=== PATIENT | male | born 1965 | race Caucasian/White ===

== ENCOUNTER 2019-09-26 11:30 | Emergency (ER) | payer OTHER, SELFPAY ==
--- NOTE | ~2019-09-26 | XR_ITS ---
EXAMINATION: XR chest 2V DATE: 09/26/2019 12:01 INDICATION: Shortness of breath TECHNIQUE: PA and lateral views of the chest are obtained. COMPARISON: 10/15/2007 FINDINGS: The lungs are free of acute opacities. There is no pleural effusion or pneumothorax. The ca rdiomediastinal silhouette is normal. There is mild thoracic spondylosis. IMPRESSION: 1. No acute cardiopulmonary abnormality. Reviewed, dictated and finalized at location A. DIRECTOR
[2019-09-26 11:35] VITALS: BP 138/95; PULSE 140; RESP 26; TEMP 38.6; O2SAT 92
--- NOTE | 2019-09-26 11:50 | PC.NURSE ---
upset about answer question about history, explain computer went to new system, refusing to answer anymore questions, taken to rm with ,
--- NOTE | 2019-09-26 11:52 | ED.URI ---
HPI - URI/Sore Throat General Chief Complaint: Upper Respiratory Infection Stated Complaint: COUGH/SOB/CHILLS/BODY ACHES/FEVER Time Seen by Provider: 09/26/19 11:32 Source: patient Mode of arrival: ambulatory Limitations: no limitations History of Present Illness HPI Narrative: 54-year-old male presents to urgent with complaints of nasal congestion, sore throat and dry cough for the past 4 days. Patient reports that 2 days ago his symptoms worsened and he started with fevers up to 101, shortness of breath and wheezing. Patient has history of COPD. Patient reports that he does use oxygen 2 L at home as needed. Patient reports that his son was recently ill with similar cold-like symptoms. Patient is a non-smoker. Patient denies recent travel. Patient has been taking jzxt-qim-givubys Tylenol and NyQuil with no relief. Patient does have a history of a bleeding disorder and takes Coumadin daily. MD elicited complaint: fever, cough, rhinorrhea and nasal congestion Pertinent past history: COPD Onset (ago): day(s) (5) Consistency: constant Description of mucous: green Able to tolerate fluids by mouth: Yes Exacerbating factors: exertion and speaking Relieving factors: nothing Context: sick contacts (son) Treatments prior to arrival: acetaminophen and cold medicine Related Data Home Medications Medication Instructions Recorded Confirmed Albuterol Inhaler 09/26/19 acetaminophen [Tylenol] 09/26/19 alpha-1 proteinase inhib.(hum) mg IV 09/26/19 09/26/19 [Zemaira] [id number] [Vicks ml PO 09/26/19 Nyquil Nighttime Relief] montelukast [Singulair] 10 mg PO HS 09/26/19 09/26/19 warfarin 4 mg PO DAILY 09/26/19 09/26/19 Allergies Allergy/AdvReac Type Severity Reaction Status Date / Time No Known Allergies Allergy Verified 09/26/19 11:53 Review of Systems Constitutional: Constitutional: Reports chills, Denies fatigue and Reports fever(s) ENT: Denies dysphagia, Denies vertigo, Denies dizziness, Denies epistaxis, Reports nasal congestion and Denies sore throat Cardiovascular: Cardiovascular: Denies chest pain and Denies radiating jaw, neck or arm pain Respiratory: Respiratory: Reports chest congestion, Reports cough, Reports dyspnea and Reports wheezing Gastrointestinal: Gastrointestinal: Denies abdominal pain, Denies diarrhea, Denies nausea and Denies vomiting Neurologic: Denies vertigo, Denies dizziness, Denies syncope and Denies focal weakness PMF Past Medical History Medical History Bleeding disorder COPD (chronic obstructive pulmonary disease) Family History Family History Mother Family history of infectious disease Family history of Alzheimer's disease Grandparent Family history of emphysema Social History Social History Smoking status: Never smoker Second hand tobacco smoke exposure: No Smoking end date: 08/02/91 Alcohol intake: never Exam Const: General: alert Nutritional Appearance: well nourished Orientation/consciousness: patient oriented x3 HENMT: Head: normal to inspection Ears: external ears normal and TM's normal bilaterally General nose exam: Nasal discharge present Face and sinus: sinus tenderness Mouth: Yes Normal oral and palatal mucosa present and Yes moist mucous membranes Neck: Neck: normal visual inspection and no lymphadenopathy Chest: Chest palpation & inspection: normal inspection of the chest Resp: Effort & Inspection: labored Auscultation: wheezes scattered wheezes and diminished lung sounds diffuse Cardio: Rate: tachycardic Rhythm: regular rhythm Heart sounds: no murmurs Skin: General skin exam: normal color, no jaundice and no pallor Rashes: no rashes Neuro: General: patient oriented x3, moves all extremities and no meningeal signs Psych: Appearance: grossly normal and w
--- NOTE | 2019-09-26 11:58 | ED.URI ---
HPI - URI/Sore Throat General Chief Complaint: Upper Respiratory Infection Stated Complaint: COUGH/SOB/CHILLS/BODY ACHES/FEVER Time Seen by Provider: 09/26/19 11:32 Source: patient Mode of arrival: ambulatory Limitations: no limitations History of Present Illness HPI Narrative: 54-year-old male presents to urgent care with complaints of nasal congestion, runny nose, body aches and chills for the past 5 days. Patient reports that 2 days ago symptoms became worse and he started with fevers, shortness of breath and wheezing. Patient has been taking sqfn-edo-rqibvhn Tylenol and NyQuil with minimal relief. Patient reports that he does have a history of COPD and has been doing his albuterol nebulizers with minimal relief. Patient does have a history of bleeding disorders and takes Coumadin daily. Patient reports that her son was sick with similar symptoms the past 2 days. Patient is non-smoker. Patient denies recent travel. Patient does report that he has oxygen at home that he uses on an as-needed basis MD elicited complaint: fever, cough, rhinorrhea and nasal congestion Pertinent past history: COPD Onset (ago): day(s) (5) Consistency: constant Exacerbating factors: exertion and speaking Relieving factors: nothing Context: sick contacts (son) Treatments prior to arrival: acetaminophen and cold medicine Related Data Home Medications Medication Instructions Recorded Confirmed Albuterol Inhaler 09/26/19 acetaminophen [Tylenol] 09/26/19 alpha-1 proteinase inhib.(hum) mg IV 09/26/19 09/26/19 [Zemaira] [id number] [Vicks ml PO 09/26/19 Nyquil Nighttime Relief] montelukast [Singulair] 10 mg PO HS 09/26/19 09/26/19 warfarin 4 mg PO DAILY 09/26/19 09/26/19 Allergies Allergy/AdvReac Type Severity Reaction Status Date / Time No Known Allergies Allergy Verified 09/26/19 11:53 [facility] Past Medical History Medical History Bleeding disorder COPD (chronic obstructive pulmonary disease) Family History Family History Mother Family history of infectious disease Family history of Alzheimer's disease Grandparent Family history of emphysema Social History Social History Smoking status: Never smoker Second hand tobacco smoke exposure: No Smoking end date: 08/02/91 Alcohol intake: never Course Vital Signs Vital signs: Vital Signs Temperature 38.6 C H 09/26/19 11:35 Pulse Rate 140 H 09/26/19 11:35 Respiratory Rate 26 H 09/26/19 11:35 Blood Pressure 138/95 H 09/26/19 11:35 Pulse Oximetry 92 09/26/19 11:35 Temperature 38.6 C H 09/26/19 11:35 Pulse Rate 140 H 09/26/19 11:35 Respiratory Rate 26 H 09/26/19 11:35 Blood Pressure 138/95 H 09/26/19 11:35 Pulse Oximetry 92 09/26/19 11:35 Discharge Plan Discharge Prescriptions: No Action warfarin 4 mg Tablet 4 mg PO DAILY RF: 0 Zemaira 1,000 mg Recon Soln IV RF: 0 Albuterol Inhaler RF: 0 acetaminophen [Tylenol] 325 mg Tablet RF: 0 montelukast [Singulair] 10 mg Tablet 10 mg PO HS RF: 0 Vicks Nyquil Nighttime Relief 6.25-15-325 mg/15 mL Liquid PO RF: 0
[2019-09-26] MEDS: ALBUTEROL SULFATE NEB 2.5 MG/3 ML INH INHALATION (12:01)
[2019-09-26] MEDS: IPRATROPIUM BR 0.02% INH SOLN 0.5 MG/2.5 ML VIAL INHALATION (12:01)
--- NOTE | 2019-09-26 12:29 | ED.URI ---
HPI - URI/Sore Throat General Chief Complaint: Upper Respiratory Infection Stated Complaint: COUGH/SOB/CHILLS/BODY ACHES/FEVER Time Seen by Provider: 09/26/19 11:32 Source: patient Mode of arrival: ambulatory Limitations: no limitations History of Present Illness HPI Narrative: 54-year-old male presents to urgent care Exacerbating factors: exertion and speaking Relieving factors: nothing Context: sick contacts (son) Treatments prior to arrival: acetaminophen and cold medicine Related Data Home Medications Medication Instructions Recorded Confirmed Albuterol Inhaler 09/26/19 acetaminophen [Tylenol] 09/26/19 alpha-1 proteinase inhib.(hum) mg IV 09/26/19 09/26/19 [Zemaira] [id number] [Vicks ml PO 09/26/19 Nyquil Nighttime Relief] montelukast [Singulair] 10 mg PO HS 09/26/19 09/26/19 warfarin 4 mg PO DAILY 09/26/19 09/26/19 Allergies Allergy/AdvReac Type Severity Reaction Status Date / Time No Known Allergies Allergy Verified 09/26/19 11:53 [facility] Past Medical History Medical History Bleeding disorder COPD (chronic obstructive pulmonary disease) Family History Family History Mother Family history of infectious disease Family history of Alzheimer's disease Grandparent Family history of emphysema Social History Social History Smoking status: Never smoker Second hand tobacco smoke exposure: No Smoking end date: 08/02/91 Alcohol intake: never Course Vital Signs Vital signs: Vital Signs Temperature 38.6 C H 09/26/19 11:35 Pulse Rate 140 H 09/26/19 11:35 Respiratory Rate 26 H 09/26/19 11:35 Blood Pressure 138/95 H 09/26/19 11:35 Pulse Oximetry 92 09/26/19 11:35 Temperature 38.6 C H 09/26/19 11:35 Pulse Rate 140 H 09/26/19 11:35 Respiratory Rate 26 H 09/26/19 11:35 Blood Pressure 138/95 H 09/26/19 11:35 Pulse Oximetry 92 09/26/19 11:35 MDM - URI/Sore Throat Lab Data Labs: Influenza A Screen Negative Reference Range: Negative Influenza B Screen Negative Reference Range: Negative Discharge Plan Discharge Prescriptions: No Action warfarin 4 mg Tablet 4 mg PO DAILY RF: 0 Zemaira 1,000 mg Recon Soln IV RF: 0 Albuterol Inhaler RF: 0 acetaminophen [Tylenol] 325 mg Tablet RF: 0 montelukast [Singulair] 10 mg Tablet 10 mg PO HS RF: 0 Vicks Nyquil Nighttime Relief 6.25-15-325 mg/15 mL Liquid PO RF: 0
--- NOTE | 2019-09-26 12:44 | PC.NURSE ---
Pt coughing everywhere and refusing mask--un-cooperative about history
[2019-09-26 12:49] VITALS: PULSE 139; RESP 22; O2SAT 92
--- NOTE | 2019-09-26 12:49 | PC.NURSE ---
Tylenol 1 Gm given at 1159
--- NOTE | 2019-09-26 12:51 | PC.NURSE ---
Pt advised needs lab work--refuses ambulance but will have take him to [facility] via car--staff there informed. Pt still rude to staff and refusing mask but coughing all over
== END 2019-09-26 12:45 | disposition short-term general hospital (02) ==
PROVIDERS: Emergency Provider Nurse Practitioner Family; PCP Family Medicine
DX: R06.00 Dyspnea, unspecified (principal); J44.1 Chronic obstructive pulmonary disease with (acute) exacerbation
CPT/HCPCS: 71046; 87804; 94640; 99213; G0463

== ENCOUNTER 2019-09-26 13:24 | Emergency (ER) | payer OTHER, SELFPAY ==
[2019-09-26] VITALS (9 sets, daily range): BP systolic 109–159; BP diastolic 80–95; PULSE 106–136; RESP 11–27; TEMP 37.2–38.4; O2SAT 92–98
--- NOTE | ~2019-09-26 | CT_ITS ---
EXAMINATION: CT abdomen pelvis w con DATE: 09/26/2019 15:51 INDICATION: Left lower quadrant abdominal pain TECHNIQUE: Computed tomography (CT) of the abdomen and pelvis was performed with 100 mL Omnipaque-350 intravenous contrast. Automated exposure control and iterative reconstruction technique were employe d. The dose-length product was 1238.96 mGy-cm. COMPARISON: None FINDINGS: Moderate emphysema at the lung bases. There is diffuse bronchial wall thickening along with scattered mucous plugging in the bilateral lower lobes. Minimal tree-in-bud opacity associated with some of th e frontal mucous impacted bronchi. Minimal atelectasis at the posterior medial basilar aspect of both lower lobes. Heart size is normal. No pericardial or pleural effusion. Diffuse hepatic steatosis wit h more focal fat at the ligamentum teres. Multiple tiny calcified gallstones in the normal gallbladde r. Spleen, pancreas, bilateral adrenal glands and kidneys are normal. There are few diverticula along the sigmoid colon without adjacent inflammatory change to suggest diverticulitis. Small bowel and ap pendix are normal. Bladder is normal. Small fat-containing left inguinal hernia. Small right paraumbi lical hernia arising from the margin of a small widemouth umbilical hernia. There is mild inflammator y stranding associated with the herniated fat. No free intraperitoneal gas or fluid. No pathologicall y enlarged abdominal or pelvic lymphadenopathy. Transitional thoracolumbar segment with right-sided h ypoplastic riblet and lumbosacral segment which is sacralized on the left. Mild scattered degenerativ e skeletal changes. IMPRESSION: 1. Mild stranding associated with herniated fat within small umbilical and para umbilical hernias whi ch could be related to either chronic scarring or acute inflammation. 2. Moderate emphysema with bronchial wall thickening, scattered mucous plugging and mild tree-in-bud opacity in the bilateral lower lobes consistent with bronchitis/bronchiolitis. 3. Small fat-containing left inguinal hernia. 4. Diffuse hepatic steatosis. Reviewed, dictated and finalized at location A. POT OPERATOR IMPRESSION: 1. Mild stranding associated with herniated fat within small umbilical and para umbilical hernias which could be related to either chronic scarring or acute i nflammation. 2. Moderate emphysema with bronchial wall thickening, scattered mucous plugging and mild tree-in-bud opacity in the bilateral lower lobes consistent with bron chitis/bronchiolitis. 3. Small fat-containing left inguinal hernia. 4. Diffuse hepatic steatosis.
--- NOTE | 2019-09-26 13:44 | ECG_ITS ---
Measurements Intervals [place] Rate: 136 P: 76 ID: 123 QRS: 62 QRSD: 81 T: 77 QT: 272 QTc: 410 Interpretive Statements SINUS TACHYCARDIA DELAYED PRECORDIAL R/S TRANSITION BASELINE WANDER- V2, V4-V5 ABNORMAL ECG Electronically Signed On 09-26-2019 13:55:31 MANAGER OF MARKETING by Mark Tuttle D.O.
--- NOTE | 2019-09-26 13:50 | ED.SOB ---
HPI - SOB/Dyspnea General Chief Complaint: Shortness of Breath/Dyspnea Stated Complaint: short of breath Time Seen by Provider: 09/26/19 13:42 Source: patient and RN notes reviewed Mode of arrival: ambulatory Limitations: no limitations History of Present Illness HPI Narrative: A 54 y/o male presents to the ED from with worsening SOB for the past 5 days. 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 He notes that coughing aggravates his SOB. He reports associated cough, fever, fatigue, MOSS, body aches, LLQ ABD pain, diarrhea, rhinorrhea, or sore throat. He denies any dysuria, hematuria, urinary frequency, dizziness, confusion, CP, or LOC. MD elicited complaint: shortness of breath Pertinent past history: COPD, asthma, pneumonia, DVT and other (Alpha-1 lung disease) Onset (ago): day(s) (5) Timing: progressively worsening Exacerbating factors: coughing Relieving factors: bronchodilators Known history of: COPD, asthma and DVT Associated symptoms: fever, cough, abdominal pain (LLQ) and other (fatigue, MOSS, body aches, diarrhea, rhinorrhea, and sore throat) Treatment prior to arrival: bronchodilator Related Data Home Medications Medication Instructions Recorded Confirmed Albuterol Inhaler 09/26/19 acetaminophen [Tylenol] 09/26/19 alpha-1 proteinase inhib.(hum) mg IV 09/26/19 09/26/19 [Zemaira] [id number] [Vicks ml PO 09/26/19 Nyquil Nighttime Relief] [id number]-winevxfqu-ylmrauxf INHALATION 09/26/19 [Trelegy Ellipta] montelukast [Singulair] 10 mg PO HS 09/26/19 09/26/19 warfarin 4 mg PO DAILY 09/26/19 09/26/19 Allergies Allergy/AdvReac Type Severity Reaction Status Date / Time No Known Allergies Allergy Verified 09/26/19 11:53 Review of Systems Review of Systems: All systems reviewed & are unremarkable except as noted in HPI and below Constitutional: Constitutional: Reports body ache(s), Reports fatigue and Reports fever(s) ENT: Reports nasal discharge and Reports sore throat Cardiovascular: Cardiovascular: Denies chest pain Respiratory: Respiratory: Reports cough and Reports dyspnea Gastrointestinal: Gastrointestinal: Reports abdominal pain (LLQ) and Reports diarrhea Genitourinary: Genitourinary: Denies hematuria, Denies dysuria and Denies urinary frequency Neurologic: Denies confusion, Denies dizziness, Reports headache(s) and Denies other (LOC) [facility] Past Medical History Medical History Acute dyspnea Asthma Bleeding disorder Bronchitis COPD (chronic obstructive pulmonary disease) DVT (deep venous thrombosis) Emphysema, unspecified History of pneumonia Lung disease Alpha-1. Umbilical hernia Surgical History Surgical History History of inguinal hernia repair History of knee surgery Family History Family History Mother Family history of infectious disease Family history of Alzheimer's disease Grandparent Family history of emphysema Social History Social History Smoking status: Never smoker Second hand tobacco smoke exposure: Yes Smoking end date: 08/02/91 Alcohol intake: never Gender identity (if verbalized by the patient): Male Exam Narrative: Exam Narrative: GENERAL: Well-appearing, morbidly obese, and in no acute distress. HEAD: Normocephalic, atraumatic ENT: Mucous membranes moist. CHEST: Diminished throughout with faint wheezing. Tachypnea s. HEART: Tachycardic and regular. Normal peripheral pulses. ABDOMEN: Soft, tender palpation left lower quadrant, nondistended, normal active bowel sounds. EXTREMITIES: Normal range of motion. No edema. SKIN: Warm, dry, no rash. NEURO: Alert and oriented x3. Course Vital Signs Vital signs: Vital Signs Temperature 101.2 F H 09/26/19 13:32 Pulse Rate 136 H 09/26
[2019-09-26 13:52] LABS: Basophils Percent Auto 0.2 % (0.2-1.2); Hematocrit 52.6 % (42.0-52.0); Hemoglobin 17.7 g/dL (14.0-18.0); Immature Granulocyte Absolute 0.07 K/mm3 (0.00-0.031); Immature Granulocyte Percent A 0.6 % (0-0.5); Lymphocytes Absolute Auto 0.89 K/mm3 (0.9-3.2); Lymphocytes Percent Auto 7.1 % (18.3-44.2); Mean Corpuscular HGB Conc 33.7 g/dl (32-36); Mean Corpuscular Hemoglobin 28.8 pg (26-34); Mean Corpuscular Volume 85.7 fl (80-100); Mean Platelet Volume 9.7 fl (7.4-10.4); Monocytes Percent Auto 7.8 % (2.6-8.5); Neutrophils Absolute Auto 10.6 K/mm3 (1.3-6.7); Neutrophils Percent Auto 84.3 % (45.5-73.1); Platelet Count Result 143 k/mm3 (150-375); Red Blood Count 6.14 M/mm3 (4.6-6.20); Red Cell Distribution Width 13.2 % (11.5-14.5); White Blood Count 12.6 K/mm3 (4.5-10.0)
[2019-09-26 14:04] LABS: Blood Urea Nitrogen 14 mg/dL (9-20); Calcium 9.1 mg/dL (8.4-10.2); Carbon Dioxide 25 mmol/L (22-30); Chloride 93 mmol/L (98-107); Estimated CRCL calculation 112 ml/min; Estimated Glomerular Filt Rate > 60; Glucose 277 mg/dL (75-110); Sodium 132 mmol/L (137-145)
[2019-09-26] MEDS: SODIUM CHLORIDE 0.9% IV 1,000 ML 999 ML IV CONT ×2 (14:28→17:37)
[2019-09-26] MEDS: ALBUTEROL SULFATE NEB 2.5 MG/0.5 ML INH 5 MG INHALATION (15:10)
[2019-09-26] MEDS: IPRATROPIUM BR 0.02% INH SOLN 0.5 MG/2.5 ML VIAL INHALATION (15:10)
[2019-09-26] MEDS: methylPREDNISolone SOD SUCC 125 MG VIAL IV PUSH (17:37)
--- NOTE | 2019-10-02 07:42 | PC.NURSE ---
LATE ENTRY This note is being entered to document information to the patient's record. The following information was omitted on [10/02/19], by [Rachell ISBELL stopped at 1837 on 09/26/19].
== END 2019-09-26 18:45 | disposition home or self-care (01) ==
PROVIDERS: Emergency Provider Emergency Medicine; PCP Family Medicine
DX: J40 Bronchitis, not specified as acute or chronic (principal); B34.9 Viral infection, unspecified; J43.9 Emphysema, unspecified; Z86.718 Personal history of other venous thrombosis and embolism; K76.0 Fatty (change of) liver, not elsewhere classified; E88.01 Alpha-1-antitrypsin deficiency; R00.0 Tachycardia, unspecified; R94.31 Abnormal electrocardiogram [ECG] [EKG]; K40.90 Unilateral inguinal hernia, without obstruction or gangrene, not specified as recurrent; K42.9 Umbilical hernia without obstruction or gangrene
CPT/HCPCS: 36415; 74177; 80048; 85025; 93005; 94640; 96361; 96365; 96375; 99284; J0131; J2930; J7030; Q9967

== ENCOUNTER 2020-07-31 10:12 | Outpatient (CLI) | payer OTHER, SELFPAY ==
--- NOTE | 2020-08-01 12:14 | WPDPFTINT ---
PFT Interpretation PFT Interpretation: Full PFTs 07/31/2020. 1. Very severe obstruction is evident in the reduction of FEV1 relative to FVC. FEV1 is 1.06/32% PRED. 2. Following inhaled bronchodilator, there is some improvement in flows, especially in peak expiratory flows. 3. Lung volumes appear hyperinflated reflecting the severe COPD. TLC is 9.67/154% PRED. 4. Diffusing capacity is reduced at 13.5/55% PRED. In summary, this study suggests very severe COPD.
--- NOTE | 2020-08-01 12:18 | WPDSIXMINUTE ---
Six Minute Walk Six Minute Walk: Six minute walk 07/31/2020. SaO2 dropped to as low as 89% during the study, then dropping to 88% during recovery following which he returned to baseline of 95%. Total distance walked was 457.2 m. Tomás Mendez MD MSc FACP FCCP
== END 2020-07-31 10:13 | disposition home or self-care (01) ==
PROVIDERS: PCP Family Medicine; Visit Provider Nurse Practitioner Family
DX: E88.01 Alpha-1-antitrypsin deficiency (principal); J44.1 Chronic obstructive pulmonary disease with (acute) exacerbation; R09.02 Hypoxemia
CPT/HCPCS: 94060; 94726; 94729

== ENCOUNTER → 2020-12-21 02:13 | Outpatient (CLI) | payer OTHER, SELFPAY ==
[2020-12-21 19:55] LABS: SARS-CoV-2 RNA PCR Negative
== END ==
PROVIDERS: PCP Family Medicine; Visit Provider Internal Medicine Gastroenterology
DX: Z01.812 Encounter for preprocedural laboratory examination (principal); Z20.822 Contact with and (suspected) exposure to COVID-19
CPT/HCPCS: C9803; U0003; U0005

== ENCOUNTER 2020-12-25 02:45 | Day surgery (SDC) | payer OTHER, SELFPAY ==
[2020-12-19 09:37] VITALS: BMI 21.4
[2020-12-25 10:00] VITALS: BP 109/76; PULSE 78; RESP 18; TEMP 36.2; O2SAT 96
[2020-12-25] MEDS: LACTATED RINGERS 1,000 ML 150 ML IV CONT (10:16)
--- NOTE | 2020-12-25 10:16 | WPDANESEPPF ---
Anes - Initial Pre Proc Eval Procedure: Operation Date: 12/25/20 10:45 Proposed Procedures p Screening Colonoscopy - Ramesh Bradley MD Date/Time: 12/25/20 10:16 Surgeon: Ramesh Bradley MD Pre Op Diagnosis: neoplasm screening Patient Data Age: 55 Gender: M Height: 5 ft 8 in Weight: 64 kg Last Vital Signs Temp 97.1 F L 12/25/20 10:00 Pulse 78 12/25/20 10:00 Resp 18 12/25/20 10:00 BP 109/76 12/25/20 10:00 Pulse Ox 96 12/25/20 10:00 Allergies Allergy/AdvReac Type Severity Reaction Status Date / Time No Known Allergies Allergy Verified 12/25/20 09:57 Home Medications Medication Instructions Recorded Confirmed Type albuterol sulfate 90 mcg/actuation 2 inhalation INHALATION Q4-6H PRN 09/28/19 12/25/20 Rx breath activated powder #1 each inhaler,sensor blood sugar diagnostic #100 each 04/11/20 10/16/20 Rx blood-glucose meter #1 each 04/11/20 10/16/20 Rx lancets #100 each 04/11/20 10/16/20 Rx alpha-1 proteinase inhib.(hum) See Rx Instructions IV WEEKLY ea 05/13/20 12/25/20 History 1,000 mg intravenous solution metformin 500 mg tablet,extended 500 mg PO QPM #90 tablet 11/12/20 12/25/20 Rx release 24 hr warfarin 4 mg tablet 4 mg PO DAILY #90 tablet 11/12/20 12/25/20 Rx fluticasone fur. 100 mcg-umeclid See Rx Instructions .ROUTE 12/09/20 12/25/20 Rx 62.5 mcg-vilant 25 mcg .COMPLEX #60 ea inhalat.powder roflumilast 500 mcg tablet See Rx Instructions .ROUTE 12/09/20 12/25/20 Rx .COMPLEX #30 tablet Patient hx anesthesia problems: none Family hx anesthesia problems: none PMFSH Past Medical History Medical History (Updated 10/16/20 @ 11:14 by Yris Borden MD) Acute dyspnea Pwzol-3-fvualkpsydn deficiency Asthma Bilateral pulmonary embolism Bleeding disorder Bronchitis COPD (chronic obstructive pulmonary disease) DVT (deep venous thrombosis) Emphysema, unspecified H/O vzysn-3-rkddxrkkftw deficiency History of pneumonia Lung disease Alpha-1. Protein C deficiency Right upper lobe pneumonia Shoulder pain Type 2 diabetes mellitus without complications Umbilical hernia Surgical History Surgical History History of hernia repair (~2010) History of inguinal hernia repair (~2010) History of knee surgery (~1981) Family History Family History Mother Family history of infectious disease Family history of Alzheimer's disease Grandparent Family history of emphysema Social History Social History Smoking status: Never smoker Second hand tobacco smoke exposure: Yes Smoking end date: 08/02/91 Alcohol intake: never Substance use: never Substance use type: does not use Living arrangements: with family Gender identity (if verbalized by the patient): Male Spiritual care concerns: No Anes - Eval Final PreProcedure Day of Procedure 12/25/20 10:16 Patient weight: normal Heart: regular rate and rhythm Lungs: clear to auscultation Airway: Mallampati scale class II Neurological: alert and oriented Last oral intake: >/= 8 hours ASA classification: III Emergent: no Anesthetic plan: proceed Anesthesia type and monitoring: general GIVS and standard monitoring Informed Consent: The patient's anesthetic plan and its attendant risks and benefits were discussed with the patient/family/POA. Questions were solicited and answers provided to the satisfaction of the patient/family/POA.
[2020-12-25 10:22] LABS: Glucose Point of Care 70 mg/dl (65-105)
[2020-12-25 10:27] LABS: Prothrombin Time 13.6 Seconds (11.1-14.7)
--- NOTE | 2020-12-25 10:31 | WPDGICN ---
Assessment and Plan Assessment and plan (1) Encounter for screening colonoscopy: Code(s): Z12.11 - Encounter for screening for malignant neoplasm of colon Status: Acute Assessment and Plan: Patient presents today for screening colonoscopy. Appears to be at average risk for colon polyps. Further recommendations will be given after endoscopy. GI Consult Note Consult date/time: 12/25/20 10:31 HPI: Ryan Duque is a 55 year old male Presents for screening colonoscopy. Patient reports that his current weight appetite bowel movements are normal. Patient denies abdominal pain. He has had no bleeding. His family history is noncontributory. Patient desires neoplasia screening colonoscopy which will be arranged. Review of Systems Review of Systems: All systems reviewed & are unremarkable except as noted in HPI and below PMFSH Past Medical History Medical History (Updated 12/25/20 @ 10:32 by Ramesh Bradley MD) Acute dyspnea Jcmvi-4-fxvxwpwuttp deficiency Asthma Bilateral pulmonary embolism Bleeding disorder Bronchitis COPD (chronic obstructive pulmonary disease) DVT (deep venous thrombosis) Emphysema, unspecified H/O jyzlm-9-qsqcwjjiptw deficiency History of pneumonia Lung disease Alpha-1. Protein C deficiency Right upper lobe pneumonia Shoulder pain Type 2 diabetes mellitus without complications Umbilical hernia Surgical History Surgical History History of hernia repair (~2010) History of inguinal hernia repair (~2010) History of knee surgery (~1981) Family History Family History Mother Family history of infectious disease Family history of Alzheimer's disease Grandparent Family history of emphysema Social History Social History Smoking status: Never smoker Second hand tobacco smoke exposure: Yes Smoking end date: 08/02/91 Alcohol intake: never Substance use: never Substance use type: does not use Living arrangements: with family Gender identity (if verbalized by the patient): Male Spiritual care concerns: No Meds Home Medications and Allergies Home Medications Medication Instructions Recorded Confirmed Type albuterol sulfate 90 mcg/actuation 2 inhalation INHALATION Q4-6H PRN 09/28/19 12/25/20 Rx breath activated powder #1 each inhaler,sensor blood sugar diagnostic #100 each 04/11/20 10/16/20 Rx blood-glucose meter #1 each 04/11/20 10/16/20 Rx lancets #100 each 04/11/20 10/16/20 Rx alpha-1 proteinase inhib.(hum) See Rx Instructions IV WEEKLY ea 05/13/20 12/25/20 History 1,000 mg intravenous solution metformin 500 mg tablet,extended 500 mg PO QPM #90 tablet 11/12/20 12/25/20 Rx release 24 hr warfarin 4 mg tablet 4 mg PO DAILY #90 tablet 11/12/20 12/25/20 Rx fluticasone fur. 100 mcg-umeclid See Rx Instructions .ROUTE 12/09/20 12/25/20 Rx 62.5 mcg-vilant 25 mcg .COMPLEX #60 ea inhalat.powder roflumilast 500 mcg tablet See Rx Instructions .ROUTE 12/09/20 12/25/20 Rx .COMPLEX #30 tablet Allergies Allergy/AdvReac Type Severity Reaction Status Date / Time No Known Allergies Allergy Verified 12/25/20 09:57 Vital Signs Vital Signs - 24 hr 12/25/20 10:00 Temperature 97.1 F L Pulse Rate 78 Respiratory Rate 18 Blood Pressure 109/76 Pulse Oximetry 96 Exam Narrative: Exam Narrative: Physical exam reveals patient to be alert. Vital signs stable. HEENT exam is unremarkable. Lungs are clear to auscultation and percussion. Heart is without murmur or extra sounds. Abdominal exam bowel sounds are present soft nontender with no organomegaly. Digital external rectal exam is normal.
[2020-12-25 11:02] VITALS: BP 148/58; PULSE 77; RESP 23; O2SAT 97
[2020-12-25 11:12] VITALS: BP 105/75; PULSE 73; RESP 26; O2SAT 97
--- NOTE | 2020-12-25 11:17 | SUR.PHASEII ---
Per Dr. Bradley, restart Coumadin 12/26/20
[2020-12-25 11:22] VITALS: BP 100/73; PULSE 64; RESP 25; O2SAT 98
[2020-12-25 11:28] LABS: Glucose Point of Care 72 mg/dl (65-105)
[2020-12-25 11:30] VITALS: BP 112/75
== END 2020-12-25 11:43 | disposition home or self-care (01) ==
PROVIDERS: PCP Family Medicine; Visit Provider Internal Medicine Gastroenterology
PROC: 0DJD8ZZ Inspection of Lower Intestinal Tract, Via Natural or Artificial Opening Endoscopic (ICD-10-PCS; CPT 45378; principal; 2020-12-25 10:45)
DX: Z12.11 Encounter for screening for malignant neoplasm of colon (principal); D12.3 Benign neoplasm of transverse colon; E11.9 Type 2 diabetes mellitus without complications; E88.01 Alpha-1-antitrypsin deficiency; D68.59 Other primary thrombophilia; J44.9 Chronic obstructive pulmonary disease, unspecified; Z86.718 Personal history of other venous thrombosis and embolism; Z86.711 Personal history of pulmonary embolism; Z79.01 Long term (current) use of anticoagulants; K64.8 Other hemorrhoids
CPT/HCPCS: 45385; 36415; 82948; 85610; 88305; C9803; J2704; J7120; U0003; U0005

== ENCOUNTER 2022-01-15 08:35 | Emergency (ER) | payer OTHER, SELFPAY ==
--- NOTE | ~2022-01-15 | XR_ITS ---
EXAMINATION: XR hand RT min 3V DATE: 01/15/2022 09:02 INDICATION: Right hand laceration with a chainsaw. TECHNIQUE: 3 views of right hand were obtained. COMPARISON: None. FINDINGS: Bone alignment is normal. No fracture. There is mild osteoarthritis of first interphalangea l joint. IMPRESSION: 1. No fracture or radiopaque foreign body. Reviewed, dictated and finalized at location B.
[2022-01-15 08:40] VITALS: BP 141/96; PULSE 104; RESP 18; TEMP 36.4; O2SAT 98
[2022-01-15 09:00] LABS: Basophils Absolute Auto 0.1 K/mm3 (0.0-0.1); Eosinophils Absolute Auto 0.2 K/mm3 (0-0.3); Eosinophils Percent Auto 3.9 % (0-4.4); Hematocrit 47.6 % (42.0-52.0); Immature Granulocyte Absolute 0.02 K/mm3 (0.00-0.031); Immature Granulocyte Percent A 0.3 % (0-0.5); Lymphocytes Absolute Auto 1.57 K/mm3 (0.9-3.2); Lymphocytes Percent Auto 26.9 % (18.3-44.2); Mean Corpuscular HGB Conc 33.6 g/dl (32-36); Mean Corpuscular Hemoglobin 30.4 pg (26-34); Mean Corpuscular Volume 90.5 fl (80-100); Mean Platelet Volume 8.7 fl (7.4-10.4); Monocytes Absolute Auto 0.6 K/mm3 (0.1-0.6); Monocytes Percent Auto 9.8 % (2.6-8.5); Neutrophils Absolute Auto 3.4 K/mm3 (1.3-6.7); Neutrophils Percent Auto 58.1 % (45.5-73.1); Platelet Count Result 165 k/mm3 (150-375); Red Blood Count 5.26 M/mm3 (4.6-6.20); Red Cell Distribution Width 13.3 % (11.5-14.5); White Blood Count 5.8 K/mm3 (4.5-10.0)
[2022-01-15] MEDS: ONDANSETRON HCL ODT 4 MG TABLET PO (09:10)
[2022-01-15 09:11] LABS: INR 1.1; Prothrombin Time 13.8 Seconds (11.1-14.7)
[2022-01-15] MEDS: HYDROcodone/acetaminophen (*CRX) 5-325 MG TABLET 1 TAB PO (09:11)
[2022-01-15 09:12] LABS: Partial Thromboplastin Time 35.9 SECONDS (22.3-36.8)
--- NOTE | 2022-01-15 09:41 | ED.WOUNDLAC ---
HPI - Wound/Laceration General Chief Complaint: Wound/Laceration Stated Complaint: R HAND VS CHAINSAW Time Seen by Provider: 01/15/22 08:44 Source: patient and RN notes reviewed Mode of arrival: ambulatory Limitations: no limitations History of Present Illness HPI narrative: This is a 56 year old male right hand dominant who presents for evaluation of right hand laceration. Patient states he accidentally nicked top of his right hand with a chainsaw. This occurred just prior to arrival. He was unable to get bleeding controlled at home so he bandaged wound. His bleeding is controlled now. He reports mild numbness to tip of 2nd finger but no difficulty moving. His last tetanus has been in last 2 years. Related Data Home Medications Medication Instructions Recorded Confirmed alpha-1 proteinase inhib.(hum) See Rx Instructions IV WEEKLY 05/13/20 05/16/21 1,000 mg intravenous solution (Zemaira) Allergies Allergy/AdvReac Type Severity Reaction Status Date / Time No Known Allergies Allergy Verified 01/15/22 08:49 Review of Systems Review of Systems: All systems reviewed & are unremarkable except as noted in HPI and below Constitutional: Constitutional: Denies chills and Denies fatigue Cardiovascular: Cardiovascular: Denies chest pain Respiratory: Respiratory: Denies cough and Denies dyspnea Gastrointestinal: Gastrointestinal: Denies nausea and Denies vomiting PMFSH Past Medical History Medical History Acute dyspnea Mrgvg-5-jxdzwkgqysg deficiency Asthma Bilateral pulmonary embolism Bleeding disorder COPD (chronic obstructive pulmonary disease) DVT (deep venous thrombosis) H/O uibkl-3-ejkhpmfpboc deficiency History of pneumonia Lung disease Alpha-1. Protein C deficiency Shoulder pain Type 2 diabetes mellitus without complications Umbilical hernia Surgical History Surgical History History of hernia repair (~2010) History of inguinal hernia repair (~2010) History of knee surgery (~1981) Family History Family History Mother Family history of infectious disease Family history of Alzheimer's disease Grandparent Family history of emphysema Social History Social History Smoking status: Former smoker Second hand tobacco smoke exposure: Yes Smoking end date: 08/02/91 Alcohol intake: never Substance use: never Substance use type: does not use Gender identity (if verbalized by the patient): Male Spiritual care concerns: No Exam Const: General: no acute distress and alert Nutritional Appearance: well nourished Orientation/consciousness: patient oriented x3 Limitations: no limitations HENMT: Head: normal to inspection Eyes: EOM: EOMs intact bilaterally Resp: Effort & Inspection: normal respiratory effort Cardio: Other: strong radial pulses Skin: Other: right dorsum mid hand with irregular laceration 4 cm with small flap, no exposed bone of tendons Neuro: General: patient oriented x3, moves all extremities and CN's II-XI intact bilaterally Extrem: Other: right hand laceration, neurovascular intact Psych: Mental Status: mental status grossly normal Affect: normal affect Attitude: cooperative Course Reevaluation(s) Reevaluation #1: Patient has been made aware that his INR is subtherapeutic. I repaired his laceration and repaired. 8 stitches Date: 01/15/22 Time: 11:50 Vital Signs Vital signs: Vital Signs Temperature 97.6 F 01/15/22 08:40 Pulse Rate 104 H 01/15/22 08:40 Respiratory Rate 18 01/15/22 08:40 Blood Pressure 141/96 H 01/15/22 08:40 Pulse Oximetry 98 01/15/22 08:40 Oxygen Delivery Room Air 01/15/22 08:40 Temperature 97.6 F 01/15/22 08:40 Pulse Rate 62 01/15/22 11:15 Respiratory Rate
[2022-01-15 11:15] VITALS: BP 121/79; PULSE 62; RESP 18; O2SAT 96
== END 2022-01-15 12:04 | disposition home or self-care (01) ==
PROVIDERS: Emergency Provider General Practice; PCP Family Medicine
DX: S61.411A Laceration without foreign body of right hand, initial encounter (principal); S60.221A Contusion of right hand, initial encounter; J44.9 Chronic obstructive pulmonary disease, unspecified; E11.9 Type 2 diabetes mellitus without complications; E88.01 Alpha-1-antitrypsin deficiency; D68.51 Activated protein C resistance; Z86.711 Personal history of pulmonary embolism; Z86.718 Personal history of other venous thrombosis and embolism; Z87.01 Personal history of pneumonia (recurrent); Z79.01 Long term (current) use of anticoagulants; Z79.84 Long term (current) use of oral hypoglycemic drugs; Z87.891 Personal history of nicotine dependence; W29.3XXA Contact with powered garden and outdoor hand tools and machinery, initial encounter
CPT/HCPCS: 12002; 36415; 73130; 85025; 85610; 85730; 99283; A9270

== ENCOUNTER 2022-04-23 09:24 | Outpatient (CLI) | payer OTHER, SELFPAY | END 2022-04-23 09:25 | disposition home or self-care (01) | LOC: ANHGOSHLAB 09:29 | PROVIDERS: PCP Family Medicine; Visit Provider Family Medicine | DX: Z51.81 Encounter for therapeutic drug level monitoring (principal); Z79.01 Long term (current) use of anticoagulants; D68.59 Other primary thrombophilia; E88.01 Alpha-1-antitrypsin deficiency | CPT/HCPCS: 99199; 36415 ==

== ENCOUNTER 2022-05-18 06:36 | Outpatient (RCR) | payer OTHER, SELFPAY | END 2022-08-16 23:59 | disposition home or self-care (01) | LOC: ANHGOSHOT 06:36 | PROVIDERS: PCP Family Medicine; Visit Provider Family Medicine | DX: M79.641 Pain in right hand (principal) | CPT/HCPCS: 99199 ==

== ENCOUNTER 2023-05-14 12:27 | Outpatient (CLI) | payer OTHER, SELFPAY ==
--- NOTE | 2023-05-14 17:17 | WPDSIXMINUTE ---
Six Minute Walk Procedure Procedure Performed Pulmonary Stress Test (6 min walk) Six Minute Walk Six Minute Walk: This is a 6 minute walk test. The test was performed and interpreted in accordance with the 2014 ERS/ATS task force guidelines. Findings: The patient's resting room air oxygen saturation measured by pulse oximetry was 93% and heart rate was 89 bpm. Patient ambulated for 488 meters and oxygen saturation remained 89 to 90%. Heart rate at the end of the study was 111 bpm. The patient did not qualify for supplemental oxygen at rest or with ambulation. There are no prior studies for comparison.
--- NOTE | 2023-05-14 17:18 | WPDPFTINT ---
PFT Procedure Performed PFT Procedure Performed Spirometry with Pre/Post Bronchodilator Plethysmography (Lung Vol) Diffusing Cap (DLCO) Flow Vol Loop PFT Interpretation This is a pulmonary function test with pre and post-bronchodilator spirometry, plethysmography and diffusing capacity. The test was performed and results interpreted in accordance with the 2019 and 2005 ATS/ERS Task Force guidelines respectively using the Global Lung Function Initiative-2012 reference equations. Patient demonstrated good effort and cooperation. Reproducibility criteria were met. The quality of the pre bronchodilator spirometry maneuver was Grade A and post bronchodilator spirometry maneuver was Grade A. Findings: Spirometry: There is decreased maximal expiratory airflow at all lung volumes with concave expiratory flow tracing. The contour the inspiratory flow tracing is normal. The pre bronchodilator FVC is 3.34 L, 78% predicted. The pre bronchodilator FEV1 is 1.17 L, 35% predicted. The pre bronchodilator FEV1: FVC ratio is 35%. The post bronchodilator FVC is 3.27 L, representing a 2% decrease. The post bronchodilator FEV1 is 1.09 L, representing a 7% decrease. The post bronchodilator FEV1: FVC ratio is 33%. Plethysmography: The total lung capacity 7.08 L, 111% predicted. The functional residual capacity is 4.83 L, 149% predicted. The residual volume is 3.24 L, 163% predicted. Diffusing capacity: The diffusing capacity unadjusted for hemoglobin and carboxyhemoglobin is 14.0, 50% predicted. The diffusing capacity adjusted for alveolar volume is 3.18, 70% predicted. In comparison to previous pulmonary function testing on 07/31/2020 the post bronchodilator FVC is unchanged from 3.33 L to 3.27 L. The post bronchodilator FEV1 is unchanged from 1.28 L to 1.09 L. The total lung capacity is decreased from 9.76 L to 7.08 L. The functional residual capacity is decreased from 7.04 L to 4.83 L. The residual volume is decreased from 5.22 L to 3.24 L. The diffusing capacity unadjusted for hemoglobin and carboxyhemoglobin is unchanged from 13.5 to 14.0. The diffusing capacity adjusted for alveolar volume is decreased from 3.68 to 3.18. Impression: There is a severe obstructive abnormality without significant improvement after inhaling a single dose of albuterol. The increase in residual volume is consistent with air trapping from an obstructive abnormality. Hyperinflation is present as demonstrated by the increase in functional residual capacity and is consistent with an obstructive abnormality. The diffusing capacity unadjusted for hemoglobin and carboxyhemoglobin is moderately decreased and remains mildly decreased when adjusted for alveolar volume. In comparison to previous pulmonary function testing on 07/31/2020 there has been a greater than anticipated time dependent decrease in the total lung capacity, functional residual capacity, residual volume and diffusing capacity adjusted for alveolar volume with no significant change in the FVC, FEV1 or diffusing capacity unadjusted for hemoglobin and carboxyhemoglobin. Clinical correlation is recommended.
== END 2023-05-14 12:28 | disposition home or self-care (01) ==
LOC: ANHPFT 12:27
PROVIDERS: PCP Family Medicine; Visit Provider Internal Medicine Critical Care Medicine
DX: J44.1 Chronic obstructive pulmonary disease with (acute) exacerbation (principal); R94.2 Abnormal results of pulmonary function studies
CPT/HCPCS: 94060; 94618; 94726; 94729

== ENCOUNTER → 2023-07-20 10:23 | Outpatient (CLI) | payer OTHER, SELFPAY ==
--- NOTE | ~2023-07-20 | CT_ITS ---
Non-contrast CT scan of the Abdomen and Pelvis Clinical indication: Incisional hernia Technique: 2.5 mm axial scans were obtained through the abdomen and pelvis without intravenous or or al contrast. Dose reduction technique was used on this scan by utilizing automated exposure control a nd iterative reconstruction technique. The dose-length product (DLP) was 414.15 mGy-cm. COMPARISON: 09/26/2019 Findings: Images through the lung bases reveal advanced emphysema with mild bibasilar bronchiolectas is. Left basilar pulmonary nodule is probably unchanged from prior exam. There is no evidence of renal or ureteral calculi. The kidneys and the ureters are nondilated. The liver, spleen, pancreas, and adrenals appear normal. Tiny gallstones are present. There is no aor tic aneurysm. There is no evidence of bowel obstruction. There is fat-containing umbilical hernia just right of mid line, with minimal infiltration of the herniated fat. Images through the pelvis were performed. There is no evidence of ascites or lymphadenopathy. Urinary bladder unremarkable. No pelvic mass seen. No ascites. Impression: Moderate fat-containing umbilical hernia, similar to prior exam. Correlate for incarceration. Cholelithiasis. Advanced bibasilar emphysema. Reviewed, dictated and finalized at location . [employer] Impression: Moderate fat-containing umbilical hernia, similar to prior exam. Correlate for incarceration. Cholelithiasis. Advanced bibasilar emphysema.
== END ==
PROVIDERS: PCP Surgery; Visit Provider Surgery
DX: K43.2 Incisional hernia without obstruction or gangrene (principal); K80.20 Calculus of gallbladder without cholecystitis without obstruction; J43.9 Emphysema, unspecified; K42.9 Umbilical hernia without obstruction or gangrene
CPT/HCPCS: 74176

== ENCOUNTER 2023-08-03 08:00 | Outpatient (CLI) | payer OTHER, SELFPAY ==
[2023-08-03 08:53] LABS: INR 1.7; Prothrombin Time 20.7 Seconds (11.1-14.7)
[2023-08-03 08:54] LABS: Partial Thromboplastin Time 29.9 SECONDS (22.3-36.8)
== END 2023-08-03 08:01 | disposition home or self-care (01) ==
LOC: ANHSURGERY 08:07
PROVIDERS: Anesthesiology; PCP Family Medicine; Visit Provider Surgery
DX: K43.2 Incisional hernia without obstruction or gangrene (principal); Z79.01 Long term (current) use of anticoagulants; Z01.818 Encounter for other preprocedural examination
CPT/HCPCS: 36415; 85610; 85730; 86850; 86900; 86901

== ENCOUNTER 2023-08-09 03:52 | Day surgery (SDC) | payer OTHER, SELFPAY ==
[2023-07-27 11:52] VITALS: BMI 23.6
--- NOTE | 2023-07-27 11:56 | PC.NURSE ---
Report to the Outpatient Waiting Room, entrance under the green pavilion located off [facility], at time 9:30 on date 08/09/23. Planned Procedure Time: 11:30. Time changes happen often and if your time is changed the preop area will call you the afternoon before. - You and your visitor will be asked to self-screen and do not enter if you have any COVID symptoms. - A mask is optional within the hospital at this time. Patients may have clear liquids (water, carbonated beverages, clear teas, apple juice) until 3 hours prior to surgery (8:30) with a maximum of 20 ounces. - No food from midnight until time of surgery Take the following medications with a SIP of water the morning of surgery: INHALERS, LORAZEPAM IF NEEDED DO NOT STOP ANY OF YOUR OTHER PRESCRIPTION MEDICATIONS PRIOR TO SURGERY ?EXCEPT THE FOLLOWING Medications to discontinue per physician: WARFARIN Date to take last dose: PER DR. TORRES Please no make-up, nail turkish, hairspray, perfume, deodorant, or body powder the day of surgery. No jewelry (including any body piercings) or valuables the day of surgery, leave them at home. Please take a shower or bath the night before, or the morning of, surgery with an antibacterial soap. Wear comfortable, loose fitting clothing. - Jewelry must be removed prior to entering the operating room. Rings and piercings that are not removed may be cut off. - The hospital will not accept responsibility for valuables. - Please leave all valuables, including medications, at home the day of surgery. If you are going home after surgery, a licensed carry all driver must drive you home. - NO public transportation without another adult if you receive anesthesia. - We recommend that an adult stay with you for 24 hours following discharge. - We also recommend that you do not drive, make important decision, drink alcoholic beverages, or take any drugs that were not prescribed by your health care provider for at least 24 hours after your discharge time. Follow any additional instructions given to you from your surgeon. If you or anyone in your household have experienced Covid symptoms in the past week, please notify your surgeon or the nurse liaison at the phone number below for possible testing. Telephone instructions given to PT Jaky KRISHNAMURTHY and asked if any additional questions and then verbalized understanding. Patient advised to call surgeon office or pre surgery nurse liaison [phone] if any additional questions.
[2023-08-09] VITALS (10 sets, daily range): BP systolic 105–139; BP diastolic 67–90; PULSE 66–96; RESP 12–24; TEMP 36.6–36.7; O2SAT 93–100
--- NOTE | 2023-08-09 07:20 | WPDHPUPDATE1 ---
History and Physical Update Update Date/Time: 08/09/23 07:20 History and Physical has been reviewed, including an updated exam of the patient. There are NO changes in the patient's condition. Risks, benefits, and alternatives have been discussed and questions answered. Patient agrees to proceed with procedure. CT reviewed, will setup for robotic assisted repair recurrent ventral hernia with mesh
[2023-08-09] MEDS: LACTATED RINGERS 1,000 ML 30 ML IV CONT ×2 (10:10→13:21)
[2023-08-09] MEDS: ACETAMINOPHEN 500 MG TABLET 1000 MG PO (10:10)
[2023-08-09 10:35] LABS: INR 0.9; Prothrombin Time 12.9 Seconds (11.1-14.7)
--- NOTE | 2023-08-09 10:59 | WPDANESEPPF ---
Anes - Initial Pre Proc Eval Procedure: Operation Date: 08/09/23 11:30 Proposed Procedures p Robotic Assisted Recurrent Incarcerated Ventral Hernia Repair with Mesh - Eda Ramsey MD Date/Time: 08/09/23 10:59 Surgeon: Eda Ramsey MD Pre Op Diagnosis: Recurrent Incarcerated Ventral Hernia Patient Data Age: 57 Gender: M Height: 1.73 m Weight: 75.5 kg Last Vital Signs Temp 36.6 C 08/09/23 10:47 Pulse 96 08/09/23 10:47 Resp 16 08/09/23 10:47 BP 139/90 08/09/23 10:47 Pulse Ox 97 08/09/23 10:47 O2 Del Method Room Air 08/09/23 10:47 Allergies Allergy/AdvReac Type Severity Reaction Status Date / Time No Known Allergies Allergy Verified 08/09/23 09:58 Home Medications Medication Instructions Recorded Confirmed Type albuterol sulfate 90 mcg/actuation 2 inhalation inhalation Q4-6H PRN 09/28/19 08/09/23 Rx breath activated powder shortness of breath or wheezing #1 inhaler,sensor ea blood sugar diagnostic (Accu-Chek #100 ea 04/11/20 07/13/23 Rx Joselin Plus test strips) blood-glucose meter (Accu-Chek #1 ea 04/11/20 07/13/23 Rx Joselin Plus Meter) lancets (Accu-Chek Multiclix #100 ea 04/11/20 07/13/23 Rx Lancet) alpha-1 proteinase inhib.(hum) See Rx Instructions IV WEEKLY 05/13/20 08/09/23 History 1,000 mg intravenous solution (Zemaira) Trelegy Ellipta 100 mcg-62.5 See Rx Instructions .Route 07/02/22 07/27/23 Rx mcg-25 mcg powder for inhalation .COMPLEX #60 ea (szzslhgqrip-mtiyajpyz-blowvtfr) cyclobenzaprine 5 mg tablet 5 mg PO DAILY PRN muscle spasm #30 11/12/22 07/27/23 Rx tabs lorazepam 0.5 mg tablet (Ativan) 0.5 mg PO BID PRN anxiety #7 tabs 11/13/22 07/27/23 Rx roflumilast 500 mcg tablet 500 mcg PO DAILY 10/11/23 12/26/23 History warfarin 5 mg tablet 5 mg PO WEEKLY #30 tabs 07/07/23 08/09/23 Rx warfarin 4 mg tablet 4 mg PO .6XW #90 tabs 07/13/23 08/09/23 Rx Laboratory Tests 08/09/23 10:14 PT 12.9 D Seconds (11.1-14.7) INR 0.9 Patient hx anesthesia problems: none Family hx anesthesia problems: none Results Review: All pre-operative results and documents have been reviewed as part of the pre-operative evaluation. [facility] Past Medical History Medical History Yrojs-5-bwmcfixxbra deficiency Anxiety with flying Bilateral pulmonary embolism Bleeding disorder COPD (chronic obstructive pulmonary disease) DVT (deep venous thrombosis) H/O bonaz-5-ofnqkzoldmh deficiency History of pneumonia Intermittent low back pain Protein C deficiency Type 2 diabetes mellitus without complications Umbilical hernia Vitamin D deficiency Surgical History Surgical History History of left knee surgery (~1981) ORIF for knee fracture and ligament injury repair History of umbilical hernia repair (~2010) Family History Family History Mother Family history of infectious disease Family history of Alzheimer's disease Grandparent Family history of emphysema Social History Social History Smoking status: Never smoker Second hand tobacco smoke exposure: Yes Smoking end date: 08/02/94 Additional smoking assessment comments: AGAIN, NONE OF YOUR BUSINESS PER PT. Alcohol intake: never Alcohol use details: NONE OF YOUR BUSINESS PER PT. STATES ONLY ON NEW YEARS Substance use: never Substance use type: does not use Lack of Transportation: No Lack of Food: Never True Current Housing: I Have Housing Concerned About Future Housing: No Difficulty Paying Gas/Electric Bills: No Difficulty Paying for Meds: No Currently Unemployed: No Education: Decline to Answer Difficulty w/ Childcare or Family Care: No Living arrangements: with family Occupation/Education: occupation Gender
[2023-08-09] MEDS: KETOROLAC 15 MG/ML VIAL (*BKC) IV PUSH (11:06)
[2023-08-09] MEDS: ceFAZolin 2 GM/D5W 50 ML 2 GM/50 ML BAG IVPB (11:14)
[2023-08-09] MEDS: BUPIVACAINE/EPINEPHRINE 0.5% 50 ML VIAL 30 ML INFILTRATE (11:49)
--- NOTE | 2023-08-09 12:56 | W.PM.PROC2 ---
Procedure Note - Detailed Date of Procedure 08/09/23 Pre-op Diagnosis Recurrent Incarcerated Ventral Hernia measuring 4 cm Post-op Diagnosis Same Procedure Performed Robotic assisted repair recurrent incarcerated incisional hernia with mesh, defect measuring 4 cm Surgeon Eda Ramsey MD Anesthesia General Indications 57-year-old male presenting with recurrent incarcerated incisional hernia. Patient had previous open periumbilical hernia repair with mesh in 2010. Findings recurrent incarcerated periumbilical or hernia measuring approximately 4 cm Description of Procedure The patient was taken the operating room placed in the supine position. After adequate induction of general anesthesia, the patient was prepped and draped in normal sterile fashion. A time-out was then done to verify the patient's identity as well as the procedure being performed. I began by making a 5 mm incision in the left upper quadrant. Through this, a Veress needle was placed into the peritoneal cavity and CO2 gas was insufflated. After adequate pneumoperitoneum was achieved, a 5 mm trocar was placed through this incision. I then placed the laparoscope through this trocar site and under direct visualization I placed a 8 mm port in the left mid abdomen as well as an additional 8 mm port in the left lower abdomen. I then moved the camera to the lower port and replaced the 5 mm port with a 12 mm port. The robot was then docked to the 3 port sites. I then went to the robotic console. I began by identifying the hernia. A moderate-sized incarcerated hernia was noted in the periumbilical region. Using graspers, I was able to reduce this hernia. The hernia was noted to contain a large amount of preperitoneal fat and omentum. There was noted to be the previously placed mesh that had pulled away from the inferior and right edge of the defect. There was also some noted permanent suture. I then closed the approximately 4 cm defect with 0 strata fix suture. I then placed a 10 x [address] mesh into the abdominal cavity. The positional stitch was placed in the middle of the mesh and brought up centering the mesh over the defect. Once this was done, I used 2 0 V lock suture x 2 to circumferentially suture the mesh to the abdominal. Once the mesh was completely sutured in, I was happy with our tension-free repair. The mesh was noted to have good overlap of the defect. I then removed the positioning device. At this point, the robot was undocked and all ports were removed. I then closed the 12 mm port site with an 0 Vicryl yhhlbu-ct-nacjh suture at the fascial level. All port sites were then closed with 4 O Monocryl subcuticular suture. The patient tolerated the procedure well, is extubated in the operating room postoperative, and will be transferred to the recovery room in stable condition. Implants 10 x [address] mesh Estimated Blood Loss 10 Drains No Packing No Pathology None sent Complications No immediate complications Condition Stable Disposition PACU [facility] Billing Surgery - Charge Forward: Surgery Billing
[2023-08-09 13:04] LABS: Glucose Point of Care 138 mg/dl (65-105)
[2023-08-09] MEDS: fentaNYL CITRATE INJ (*CRX) 100 MCG/2 ML VIAL 25 MCG IV PUSH ×7 (13:15→14:19)
[2023-08-09] MEDS: oxyCODONE HCL (*CRX) 5 MG TAB IR PO (14:40)
--- NOTE | 2023-08-09 14:52 | SUR.PHASEII ---
Patient may resume Warfarin tomorrow if no issues per Dr. Ramsey.
== END 2023-08-09 15:23 | disposition home or self-care (01) ==
PROVIDERS: PCP Family Medicine; Visit Provider Surgery
PROC: (CPT 49616; principal; 2023-08-09 11:30)
DX: K43.2 Incisional hernia without obstruction or gangrene (principal); F41.9 Anxiety disorder, unspecified; E11.9 Type 2 diabetes mellitus without complications; E55.9 Vitamin D deficiency, unspecified; J44.9 Chronic obstructive pulmonary disease, unspecified; E88.01 Alpha-1-antitrypsin deficiency; D68.59 Other primary thrombophilia; Z79.51 Long term (current) use of inhaled steroids; Z79.01 Long term (current) use of anticoagulants; Z98.890 Other specified postprocedural states; Z86.711 Personal history of pulmonary embolism
CPT/HCPCS: 49616; S2900; 36415; 82948; 85610; 85730; 86850; 86900; 86901; A9270; C1781; J0690; J1100; J1885; J2250; J2371; J2405; J2704; J3010; J7120